=== PATIENT | female | born 1975 | race Native Hawaiian/Other Pacific Islander ===

== ENCOUNTER 2023-08-08 23:35 | Emergency (ER) | payer OTHER ==
--- NOTE | 2023-08-09 00:10 | ED ---
General Adult HPI <Merrill Dc - Last Filed: 08/09/23 00:09> <Denis Porter - Last Filed: 08/09/23 03:59> - General Stated complaint: swallowed teeth caps Time Seen by Provider: 08/09/23 00:08 - History of Present Illness Initial comments: Quicknote Patient states she was eating earlier when she accidentally swallowed her teeth "caps" (Merrill Dc) Dictation was produced using [employer] dictation software. please excuse any grammatical, word or spelling errors. Chief Complaint: 48-year-old female presents with foreign body sensation in throat History of Present Illness: Patient is a 40-year-old female she was eating a salad. She states that 2 of her crowns on her 2 front teeth became loose. Patient thinks that she swallowed it. Patient feels a foreign body sensation in throat. Patient able to tolerate liquids. Patient has no other complaints. The ROS documented in this emergency department record has been reviewed and confirmed by me. Those systems with pertinent positive or negative responses have been documented in the HPI. All other systems are other negative and/or noncontributory. (Denis Porter) - Related Data Allergies Allergy/AdvReac Type Severity Reaction Status Date / Time No Known Allergies Allergy Verified 08/09/23 00:10 Review of Systems ROS Other: All systems not noted in ROS Statement are negative. <Merrill Dc - Last Filed: 08/09/23 00:09> ROS Other: All systems not noted in ROS Statement are negative. <Denis Porter - Last Filed: 08/09/23 03:59> ROS Statement: Those systems with pertinent positive or pertinent negative responses have been documented in the HPI. General Exam <Merrill Dc - Last Filed: 08/09/23 00:09> <Denis Porter - Last Filed: 08/09/23 03:59> - General Exam Comments Initial Comments: Visual Physical Exam Vital signs reviewed General: Well-appearing, nontoxic, no acute distress. Head: Normocephalic, atraumatic Eyes: PERRLA, EOMI ENT: Airway patent Chest: Nonlabored breathing Skin: No visual rash, normal skin tone Neuro: Alert and oriented 3 Musculoskeletal: No gross abnormalities (Merrill Dc) PHYSICAL EXAM: General Impression: Alert and oriented x3, not in acute distress HEENT: Normocephalic atraumatic, extra-ocular movements intact, pupils equal and reactive to light bilaterally, mucous membranes moist. Cardiovascular: Heart regular rate and rhythm Chest: Able to complete full sentences, no retractions, no tachypnea Abdomen: abdomen soft, non-tender, non-distended, no organomegaly Musculoskeletal: Pulses present and equal in all extremities, no peripheral edema Motor: no focal deficits noted Neurological: CN II-XII grossly intact, no focal motor or sensory deficits noted Skin: Intact with no visualized rashes Psych: Normal affect and mood (Denis Porter) Course Vital Signs 08/09/23 00:10 Temperature 98.1 F Pulse Rate 89 Respiratory 16 Rate Blood Pressure 133/86 O2 Sat by Pulse 98 Oximetry Medical Decision Making <Merrill Dc - Last Filed: 08/09/23 00:09> <Denis Porter - Last Filed: 08/09/23 03:59> - Medical Decision Making Quicknote portion performed. Signed Merrill Dc PA-C (Merrill Dc) Was pt. sent in by a medical professional or institution (LINETTE Hodge, INTERNAL GRINDER SET UP OPERATOR, urgent care, hospital, or residential...) When possible be specific @ -No Did you speak to anyone other than the patient for history (EMS, parent, family, police, friend...)? What history was obtained from this source @ -No Did you review nursing and triage notes (agree or disagree)? Why? @ -I reviewed and agree with nursing and triage notes Were old charts reviewed (outside hosp., previous admission, EMS record, old EKG, old radiological studies, urgent care reports/EKG's, residential records)? Report findings @ -No old charts were reviewed Differential Diagnosis (chest pain, altered mental status, abdominal pain women, abdominal pain men, vaginal bleeding, musculoskeletal, weakness, fever, dyspnea, syncope, headache, dizziness, GI bleed, back pain, seizure, CVA, palpatations, mental health)? @ -Not applicable EKG interpreted by me (3pts min.). @ -None done X-rays interpreted by me (1pt min.). @ -Soft tissue neck x-ray shows no acute processes CT interpreted by me (1pt min.). @ -CT soft tissue neck shows no foreign body U/S interpreted by me (1pt. min.). @ -None done What testing was considered but not performed or refused? (CT, X-rays, U/S, labs)? Why? @ -None What meds were considered but not given or refused? Why? @ -None Did you discuss the management of the patient with other professionals (professionals i.e. , PA, INTERNAL GRINDER SET UP OPERATOR, lab, RT, psych nurse, addiction social worker, plater barrel, teacher, quarantine officer, case coordinator)? Give summary @ -No Was smoking cessation discussed for >3mins.? @ -No Was critical care preformed (if so, how long)? @ -No Were there social determinants of health that impacted care today? How? (Homelessness, low income, unemployed, alcoholism, drug addiction, transportation, low edu. Level, literacy, decrease access to med. care, [facility], rehab)? @ -No Was there de-escalation of care discussed even if they declined (Discuss DNR or withdrawal of care, Hospice)? DNR status @ -No What co-morbidities impacted this encounter? (DM, HTN, Smoking, COPD, CAD, Cancer, CVA, ARF, Chemo, Hep., AIDS, mental health diagnosis, sleep apnea, morbid obesity)? @ -None Was patient admitted / discharged? Hospital course, mention meds given and route, prescriptions, significant lab abnormalities, going to OR and other pertinent info. @ -40-year-old female presents to the emergency department for foreign body sensation in the throat. She is adamant that she swallowed a crown. Vital signs upon arrival are within acceptable limits. Patient well-appearing at the bedside. X-ray shows no foreign bodies identified in the aerodigestive tract. Patient told of these results felt that there is her tooth in her throat or something else. CT soft tissue neck was obtained showing no acute processes. Patient cleared for discharge. Undiagnosed new problem with uncertain prognosis? @ -No Drug Therapy requiring intensive monitoring for toxicity (Heparin, Nitro, Insulin, Cardizem)? @ -No Were any procedures done? @ -No Diagnosis/symptom? Acute, or Chronic, or Acute on Chronic? Uncomplicated (without systemic symptoms) or Complicated (systemic symptoms)? @ -Foreign body sensation in the throat Side effects of treatment? @ -No Exacerbation, Progression, or Severe Exacerbation? @ -No Poses a threat to life or bodily function? How? (Chest pain, USA, VT, pneumonia, PE, COPD, DKA, ARF, appy, cholecystitis, CVA, Diverticulitis, Homicidal, Suicidal, threat to staff... and all critical care pts) @ -No (Denis Porter) Disposition <Merrill Dc - Last Filed: 08/09/23 00:09> Is patient prescribed a controlled substance at d/c from ED?: No Time of Disposition: 03:59 <Denis Porter - Last Filed: 08/09/23 03:59> Clinical Impression: Foreign body sensation, throat Disposition: HOME SELF-CARE Condition: Good Instructions (If sedation given, give patient instructions): Foreign Body Ingestion (ED) Referrals: None,Stated [Primary Care Provider] - 1-2 days
[2023-08-09 00:35] VITALS: TEMP 98.1
--- NOTE | 2023-08-09 01:10 | XR ---
EXAM: XR Soft Tissue Neck CLINICAL HISTORY: ITS.REASON XR Reason: r/o foreign body TECHNIQUE: Frontal and lateral views of the soft tissues of the neck. COMPARISON: No relevant prior studies available. FINDINGS: Airway: Unremarkable. No abnormal narrowing. Bones/joints: Unremarkable. No acute fracture. Soft tissues: Unremarkable. No abnormal soft tissue prominence. Normal epiglottis. IMPRESSION: No evidence of radiopaque foreign body overlying the aerodigestive tract.
--- NOTE | 2023-08-09 03:53 | CT ---
EXAM: CT Neck Without Intravenous Contrast CLINICAL HISTORY: ITS.REASON CT Reason: throat foreign body sensation TECHNIQUE: Axial computed tomography images of the neck without intravenous contrast. CTDI is 5.6 mGy and DLP is 183.6 mGy-cm. This CT exam was performed using one or more of the following dose reduction techniques: automated exposure control, adjustment of the mA and/or kV according to patient size, and/or use of iterative reconstruction technique. COMPARISON: No relevant prior studies available. FINDINGS: Oropharynx: Unremarkable. No significant tonsillar enlargement. Hypopharynx: Unremarkable. Larynx: Unremarkable. Normal epiglottis. Trachea: Unremarkable. Retropharyngeal space: Unremarkable. Submandibular/parotid glands: Unremarkable. Glands are normal in size. Thyroid: Unremarkable. No enlarged or calcified nodules. Bones/joints: No acute fracture. Dental caries with. Odilon lucencies about tooth #3, 13, and 14 concerning for periapical abscesses or pulpitis. Recommend dental consult. Soft tissues: Unremarkable. Vasculature: No acute findings. Lymph nodes: Unremarkable. No lymphadenopathy. Lung apices: Unremarkable as visualized. IMPRESSION: No evidence for acute cervical soft tissue pathology. No evidence of radiopaque foreign body.
[2023-08-09 04:29] VITALS: BP 131/78; PULSE 711; RESP 6
== END 2023-08-09 04:03 | disposition home or self-care (01) ==
LOC: EC 23:35
DX: T17.208A Unspecified foreign body in pharynx causing other injury, initial encounter (principal)
CPT/HCPCS: 70360; 70490; 99284